=== PATIENT | female | born 1970 | race Caucasian/White ===

== ENCOUNTER 2018-11-14 21:31 | Emergency (ER) | payer BC ==
[~2018-11-14] VITALS: Ht 165.1 cm; Wt 74.8 kg
[2018-11-14 21:56] VITALS: BP_SYST 119
[2018-11-14 23:50] VITALS: BP_SYST 125
== END 2018-11-14 23:50 | disposition home or self-care (01) ==
LOC: SED 21:31
DX: M75.101 Unspecified rotator cuff tear or rupture of right shoulder, not specified as traumatic (principal); Z85.71 Personal history of Hodgkin lymphoma
CPT/HCPCS: 73030; 99283

== ENCOUNTER 2024-01-06 12:34 | Inpatient (IN) | payer BC ==
[~2024-01-06] VITALS: Ht 165.1 cm; Wt 73.5 kg
[2024-01-06 12:44] VITALS: BP_SYST 124; PULSE 72; RESP 16; TEMP 98.3; O2SAT 98
[2024-01-06 13:18] LABS: BASOPHILS % (AUTO) 0.3 % (0.0-2.0); EOSINOPHILS # (AUTO) 0.1 K/uL (0.0-0.4); EOSINOPHILS % (AUTO) 1.7 % (0.0-4.0); HEMATOCRIT 44.9 % (36-48); HEMOGLOBIN 15.7 g/dL (12.0-16.0); LYMPHOCYTES # (AUTO) 1.8 K/uL (1.0-5.5); LYMPHOCYTES % (AUTO) 24.2 % (20.5-51.5); MEAN CORPUSCULAR HEMOGLOBIN 33 pg (27-31); MEAN CORPUSCULAR HGB CONC 35 % (32-36); MEAN CORPUSCULAR VOLUME 93 fL (79.0-98.0); MONOCYTES # (AUTO) 0.7 K/uL (0.0-1.0); MONOCYTES % (AUTO) 8.8 % (1.7-9.3); NEUTROPHILS # (AUTO) 4.9 K/uL (1.8-7.7); PLATELET COUNT (AUTO) 218 K/uL (130-430); RED BLOOD CELL COUNT(AUTO) 4.84 MIL/uL (4.2-6.2); RED CELL DISTRIBUTION WIDTH 13.3 % (9.0-15.0); WHITE BLOOD COUNT (AUTO) 7.5 K/uL (4.8-10.8)
[2024-01-06 13:32] LABS: CALCIUM 9.2 mg/dL (8.4-11.0); CREATININE 0.75 mg/dL (0.55-1.30); POTASSIUM 3.9 mmol/L (3.5-5.1)
[2024-01-06 13:36] LABS: ALBUMIN 3.8 g/dL (3.4-4.8); BILIRUBIN,DIRECT 1.8 mg/dL (0.0-0.3); TOTAL BILIRUBIN 3.6 mg/dL (0.0-1.0); TOTAL PROTEIN, SERUM 8.1 g/dL (6.4-8.3)
[2024-01-06] MEDS: KETOROLAC TROMETHAMINE 15 MG VIAL IVP ONE (13:39)
[2024-01-06 14:45] LABS: BILIRUBIN,URINE NEGATIVE (NEGATIVE); CLARITY/URINE CLEAR (CLEAR); COLOR,URINE YELLOW (YELLOW); GLUCOSE,URINE NEGATIVE (NEGATIVE); KETONES,URINE 1+ (NEGATIVE); LEUKOCYTE ESTERASE ,URINE NEGATIVE (NEGATIVE); NITRITE, URINE NEGATIVE (NEGATIVE); PROTEIN URINE NEGATIVE (NEGATIVE)
[2024-01-06 14:46] LABS: BLOOD, URINE TRACE (NEGATIVE)
[2024-01-06 15:04] LABS: BACTERIA,URINE MODERATE /HPF (None Seen); RBC,URINE 0-3 /HPF (0-3); WBC,URINE 0-3 /HPF (0-3)
[2024-01-06 18:26] VITALS: BP_SYST 109; PULSE 71; RESP 18; TEMP 98
[2024-01-06 18:35] VITALS: O2SAT 98
[2024-01-06 20:00] VITALS: BP_SYST 120; PULSE 89; RESP 18; TEMP 98.2; O2SAT 96
[2024-01-06] MEDS: FAMOTIDINE 20 MG TABLET PO SCH (20:34)
[2024-01-06] MEDS: KETOROLAC TROMETHAMINE 15 MG VIAL IVP PRN (20:40)
[2024-01-06] MEDS: D5LR 1,000 ML IV SCH (20:45)
[2024-01-07] VITALS: BP_SYST 118; PULSE 78; RESP 18; TEMP 98.4; O2SAT 97
[2024-01-07 05:37] LABS: BASOPHILS % (AUTO) 0.6 % (0.0-2.0); EOSINOPHILS # (AUTO) 0.2 K/uL (0.0-0.4); EOSINOPHILS % (AUTO) 3.6 % (0.0-4.0); LYMPHOCYTES # (AUTO) 1.6 K/uL (1.0-5.5); LYMPHOCYTES % (AUTO) 27.5 % (20.5-51.5); MEAN CORPUSCULAR HEMOGLOBIN 32 pg (27-31); MEAN CORPUSCULAR HGB CONC 35 % (32-36); MEAN CORPUSCULAR VOLUME 93 fL (79.0-98.0); MONOCYTES # (AUTO) 0.7 K/uL (0.0-1.0); MONOCYTES % (AUTO) 12.4 % (1.7-9.3); NEUTROPHILS # (AUTO) 3.2 K/uL (1.8-7.7); NEUTROPHILS % (AUTO) 55.9 % (40.0-70.0); PLATELET COUNT (AUTO) 203 K/uL (130-430); RED BLOOD CELL COUNT(AUTO) 4.33 MIL/uL (4.2-6.2); RED CELL DISTRIBUTION WIDTH 13.4 % (9.0-15.0); WHITE BLOOD COUNT (AUTO) 5.7 K/uL (4.8-10.8)
[2024-01-07 06:15] LABS: ALBUMIN 3.1 g/dL (3.4-4.8); CALCIUM 8.8 mg/dL (8.4-11.0); CREATININE 0.79 mg/dL (0.55-1.30); POTASSIUM 4.7 mmol/L (3.5-5.1); TOTAL BILIRUBIN 1.9 mg/dL (0.0-1.0); TOTAL PROTEIN, SERUM 6.9 g/dL (6.4-8.3)
[2024-01-07 08:00] VITALS: BP_SYST 114; PULSE 75; RESP 20; TEMP 98.1; O2SAT 96
[2024-01-07] MEDS: LORazepam 2 MG/ML VIAL IVP ONE (08:43)
[2024-01-07 12:00] VITALS: BP_SYST 115; PULSE 71; RESP 18; TEMP 98; O2SAT 98
[2024-01-07 16:00] VITALS: BP_SYST 115; PULSE 55; RESP 18; TEMP 98; O2SAT 95
[2024-01-07 20:00] VITALS: BP_SYST 122; PULSE 83; RESP 18; TEMP 98.2; O2SAT 97
[2024-01-07 20:31] VITALS: BP_SYST 122; PULSE 83; RESP 18; TEMP 98.2; O2SAT 97
[2024-01-08 14:06] LABS: HEPATITIS A AB, IgM Negative (Negative); HEPATITIS B CORE AB, IgM Negative (Negative); HEPATITIS B SURFACE AG Negative (Negative); HEPATITIS C VIRUS AB Non Reactive (Non Reactive)
== END 2024-01-07 20:59 | disposition home or self-care (01) | DRG 446 ==
LOC: SED 12:34 → SMU 15:46
PROVIDERS: ADMIT Internal Medicine; ATTEND Internal Medicine
DX: K80.51 Calculus of bile duct without cholangitis or cholecystitis with obstruction (principal); K76.0 Fatty (change of) liver, not elsewhere classified; Z90.49 Acquired absence of other specified parts of digestive tract; Z90.710 Acquired absence of both cervix and uterus; Z85.71 Personal history of Hodgkin lymphoma
CPT/HCPCS: 36415; 74181; 76700; 80048; 80053; 80074; 80076; 81000; 81001; 81015; 83690; 85025; 87086; 96374; 99285; J1885; J2060

== ENCOUNTER 2024-07-29 21:14 | Emergency (ER) | payer BC ==
[~2024-07-29] VITALS: Ht 165.1 cm; Wt 72.6 kg
[2024-07-29 21:49] VITALS: BP_SYST 121; PULSE 97; RESP 20; TEMP 97.3; O2SAT 97
[2024-07-29] MEDS ORDERED: NACL 0.9% 1,000 ML IV ONE (22:15)
[2024-07-29] MEDS: NACL 0.9% 1,000 ML IV ONE (22:19)
[2024-07-29] MEDS: MORPHINE 4 MG INJ. 4 MG/ML VIAL IVP ONE (22:21)
[2024-07-29] MEDS: PANTOPRAZOLE SODIUM 40 MG/VIAL (PROTONIX) IVP ONE (22:22)
[2024-07-29] MEDS: ONDANSETRON HCL 4 MG/2 ML VIAL IVP ONE (22:22)
[2024-07-29 22:45] LABS: BASOPHILS # (AUTO) 0.1 K/uL (0.0-0.2); BASOPHILS % (AUTO) 0.7 % (0.0-2.0); EOSINOPHILS # (AUTO) 0.1 K/uL (0.0-0.4); EOSINOPHILS % (AUTO) 1.6 % (0.0-4.0); HEMATOCRIT 44.8 % (36-48); HEMOGLOBIN 15.6 g/dL (12.0-16.0); LYMPHOCYTES # (AUTO) 3.3 K/uL (1.0-5.5); LYMPHOCYTES % (AUTO) 39.5 % (20.5-51.5); MEAN CORPUSCULAR HEMOGLOBIN 32 pg (27-31); MEAN CORPUSCULAR HGB CONC 35 % (32-36); MEAN CORPUSCULAR VOLUME 92 fL (79.0-98.0); MONOCYTES # (AUTO) 0.8 K/uL (0.0-1.0); MONOCYTES % (AUTO) 8.9 % (1.7-9.3); NEUTROPHILS # (AUTO) 4.1 K/uL (1.8-7.7); NEUTROPHILS % (AUTO) 49.3 % (40.0-70.0); PLATELET COUNT (AUTO) 278 K/uL (130-430); RED BLOOD CELL COUNT(AUTO) 4.88 MIL/uL (4.2-6.2); RED CELL DISTRIBUTION WIDTH 13.6 % (9.0-15.0); WHITE BLOOD COUNT (AUTO) 8.4 K/uL (4.8-10.8)
[2024-07-29 23:10] LABS: BILIRUBIN,DIRECT 0.4 mg/dL (0.0-0.3); CALCIUM 9.6 mg/dL (8.4-11.0); CREATININE 0.88 mg/dL (0.55-1.30); POTASSIUM 3.7 mmol/L (3.5-5.1); TOTAL BILIRUBIN 0.7 mg/dL (0.0-1.0); TOTAL PROTEIN, SERUM 8.1 g/dL (6.4-8.3)
[2024-07-30 01:37] LABS: BILIRUBIN,URINE NEGATIVE (NEGATIVE); BLOOD, URINE NEGATIVE (NEGATIVE); CLARITY/URINE CLOUDY (CLEAR); COLOR,URINE YELLOW (YELLOW); GLUCOSE,URINE NEGATIVE (NEGATIVE); KETONES,URINE NEGATIVE (NEGATIVE); NITRITE, URINE NEGATIVE (NEGATIVE); PROTEIN URINE NEGATIVE (NEGATIVE)
[2024-07-30 01:48] LABS: LEUKOCYTE ESTERASE ,URINE TRACE (NEGATIVE)
[2024-07-30 01:49] LABS: BACTERIA,URINE FEW /HPF (None Seen); RBC,URINE 0-3 /HPF (0-3)
[2024-07-30 01:50] LABS: URINE AMORPHOUS PHOSPHATES 2+ /HPF (None Seen)
[2024-07-30] MEDS: cefTRIAXone 1 GM IVPB PREMIX 50 ML IV ONE (02:28)
[2024-07-30] MEDS: MORPHINE 4 MG INJ. 4 MG/ML VIAL IVP ONE (02:57)
[2024-07-30] MEDS ORDERED: CIPR500T5 PO (03:52)
[2024-07-30] MEDS ORDERED: TRAM50TA2 PO (03:52)
[2024-07-30 04:00] VITALS: BP_SYST 135; PULSE 97; RESP 18; TEMP 97.3; O2SAT 98
== END 2024-07-30 04:00 | disposition home or self-care (01) ==
LOC: SED 21:14
DX: N12 Tubulo-interstitial nephritis, not specified as acute or chronic (principal); R10.13 Epigastric pain; R11.0 Nausea; Z85.71 Personal history of Hodgkin lymphoma; Z90.49 Acquired absence of other specified parts of digestive tract; Z90.710 Acquired absence of both cervix and uterus; Z79.899 Other long term (current) drug therapy; Z79.2 Long term (current) use of antibiotics
CPT/HCPCS: 99285; 74176; 96375; 96361; 80076; 80048; 81000; 81001; 83690; 85025; 87040; 87086; 36415; 96365; 96376; 81015; J2405; J2470; J2270 ×2; J7030; J0696